=== PATIENT | male | born 1950 | race Caucasian/White ===

== ENCOUNTER 2017-04-13 05:35 | Inpatient (IN) | payer MEDICARE ==
[~2017-04-13] VITALS: Ht 182.9 cm; Wt 141.0 kg
[~2017-04-13 05:35] MED LIST: ASCO100029 PO; ASPI81TA23 PO; ATOR20TA15 PO; CARV3.12 PO; COQ-50CA2 PO; GLUC500T4 PO; LECI12002 PO; LISI-519 PO; METF500T PO; MULT1TAB64 PO; OMEG100046 PO; PIOG30TA4 PO; ROPI0.5T PO; TIZA4CAP3 PO
[2017-04-13] MEDS ORDERED: LACTATED RINGER'S 1000 ML IV PRN (06:15)
[2017-04-13] MEDS ORDERED: ACETAMINOPHEN 1000 MG/100 ML 100 ML IV SCH (06:15)
[2017-04-13] MEDS ORDERED: ONDANSETRON HCL 4 MG/2 ML VIAL IV PUSH SCH (06:15)
[2017-04-13] MEDS ORDERED: SCOPOLAMINE 1.5 MG PATCH T-DERMAL SCH (06:15)
[2017-04-13] MEDS ORDERED: POVIDONE IODINE 5% (ANTISEPSIS KIT) 4 APPLICATIONS EACH NARE PRN (06:15)
[2017-04-13] MEDS ORDERED: SODIUM CHLORID 0.9% 500 ML IV PRN (06:15)
[2017-04-13] MEDS ORDERED: ceFAZolin 2 GM PREMIX 50 ML IV SCH (06:15)
[2017-04-13] MEDS ORDERED: CHLORHEXIDINE GLUCONATE 2 % 1 PACK (2 CLOTHS) TOPICAL PRN (06:15)
[2017-04-13] MEDS ORDERED: APREPITANT 40 MG CAP PO SCH (06:15)
[2017-04-13] MEDS ORDERED: METOPROLOL TARTRATE 25 MG TAB PO PRN (06:15)
[2017-04-13] MEDS ORDERED: BUPIVACAINE/EPINEPHRINE 0.25% 50 ML VIAL ONE (07:18)
--- NOTE | 2017-04-13 07:47 | HHI.PR ---
Immediate Post Op Note Procedure Date: Apr 13, 2017 Pre Op Diagnosis: morbid obesity bmi 42, hypercholestremia, augustina, htn Post Op Diagnosis: same Surgeon: Diallo Colin MD [employer] Equipment Tender(s): see or sheet Procedure: laparoscopic sleeve gastrectomy Findings: no leak Complications: none Specimen(s) removed: none Estimated blood loss: 5cc Anesthesia: General Drains: None Patient to: PACU Patient Condition: Good Diallo Colin MD Apr 13, 2017 07:47
[2017-04-13] MEDS ORDERED: metroNIDAZOLE 500 MG INJ 100 ML IV ONE (08:12)
[2017-04-13] MEDS ORDERED: DO NOT ADM ANY ANTICOAGULANT DRUGS PRN (09:50)
[2017-04-13] MEDS ORDERED: MIDAZOLAM HCL 2 MG/2 ML VIAL ONE (09:56)
[2017-04-13] MEDS: D5-1/2 NS + KCL 20 MEQ INJ 1,000 ML IV SCH ×3 (10:12→22:47)
[2017-04-13] MEDS ORDERED: diphenhydrAMINE HCL 50 MG/ML VIAL IV PUSH PRN (10:45)
[2017-04-13] MEDS ORDERED: ACETAMINOPHEN 325MG/HYDROcodone 7.5MG/15ML UDC PO PRN (10:45)
[2017-04-13] MEDS ORDERED: diphenhydrAMINE HCL ELIXIR 12.5 MG/5 ML CUP PO PRN (10:45)
[2017-04-13] MEDS ORDERED: PANTOPRAZOLE SOD 40 MG DELAYED RELEASE TAB PO SCH (10:45)
[2017-04-13] MEDS: SODIUM CHLORIDE 0.9% FLUSH 10 ML FLUSH IV FLUSH SCH ×2 (10:45→20:23)
[2017-04-13] MEDS ORDERED: SODIUM CHLORIDE 0.9% FLUSH 10 ML FLUSH IV FLUSH PRN (10:45)
[2017-04-13] MEDS ORDERED: *morphine SULFATE 4 MG/ML PERIprocedure ONLY ONE (10:49)
[2017-04-13] MEDS ORDERED: Post-op Orders (for Pharmacy) OTHER ONE (11:00)
[2017-04-13] MEDS ORDERED: ONDANSETRON HCL 4 MG/2 ML VIAL IV PUSH PRN (11:00)
[2017-04-13] MEDS ORDERED: ENALAPRILAT 1.25 MG/ML VIAL IV PUSH PRN (11:00)
[2017-04-13] MEDS: METOCLOPRAMIDE HCL 10 MG/2 ML VIAL IV PUSH SCH ×3 (11:10→22:54)
[2017-04-13 13:10] VITALS: BP 119/61; PULSE 87; RESP 19; TEMP 95.4; O2SAT 92
[2017-04-13] MEDS: ACETAMINOPHEN 1000 MG/100 ML 100 ML IV SCH ×3 (14:23→22:48)
[2017-04-13] MEDS: ENOXAPARIN SODIUM 40 MG/0.4 ML SYRINGE SQ SCH (14:23)
[2017-04-13] MEDS: ACETAMINOPHEN 325MG/HYDROcodone 7.5MG/15ML UDC PO PRN (14:23)
[2017-04-13 16:00] VITALS: BP 101/55; PULSE 77; RESP 19; TEMP 95.9; O2SAT 90
[2017-04-13 16:20] VITALS: O2SAT 92
[2017-04-13] MEDS: metroNIDAZOLE 500 MG INJ 100 ML IV SCH (17:06)
[2017-04-13 20:00] VITALS: BP 142/79; PULSE 85; RESP 20; TEMP 96.5; O2SAT 98
[2017-04-14] VITALS: BP 118/69; PULSE 92; RESP 21; TEMP 97.8; O2SAT 94
[2017-04-14] MEDS: metroNIDAZOLE 500 MG INJ 100 ML IV SCH ×2 (00:32→08:43)
--- NOTE | 2017-04-14 04:58 | HHI.PR ---
Subjective Subjective Notes mild incisional pain, no nausea, ambulating Objective Vitals/I&O Vital Signs Date Time Temp Pulse Resp B/P (MAP) Pulse Ox O2 Delivery O2 Flow Rate FiO2 04/14/17 00:38 Nasal Cannula 2.00 04/14/17 00:00 97.8 92 21 118/69 (85) 94 Abdomen: Other (soft incisional tenderness) A/P Assessment and Plan POD 1 Lap sleeve gastrectomy PLAN Liquid diet oob dvt ppx po pain control d/c planning after lunch pending labs and intake Diallo Colin MD Apr 14, 2017 04:58
[2017-04-14 05:13] VITALS: BP 122/60; PULSE 87; RESP 20; TEMP 98.8; O2SAT 92
[2017-04-14] MEDS: ACETAMINOPHEN 1000 MG/100 ML 100 ML IV SCH (05:50)
[2017-04-14] MEDS: ACETAMINOPHEN 325MG/HYDROcodone 7.5MG/15ML UDC PO PRN (05:50)
[2017-04-14] MEDS: METOCLOPRAMIDE HCL 10 MG/2 ML VIAL IV PUSH SCH (05:52)
[2017-04-14 06:03] LABS: AUTOMATED NEUTROPHIL # 7.3 TH/MM3 (1.8-7.7); BASOPHIL % 0.3 % (0.0-2.0); EOSINOPHIL % 0.2 % (0.0-4.0); HEMATOCRIT 40.9 % (39.0-51.0); LYMPH % 13.6 % (9.0-44.0); LYMPHOCYTE # 1.3 TH/MM3 (1.0-4.8); MEAN CELL VOLUME 89.1 FL (80.0-100.0); MEAN CORPUSCULAR HEMOGLOBIN 30.4 PG (27.0-34.0); MEAN CORPUSCULAR HGB CONC 34.1 % (32.0-36.0); MEAN PLATELET VOLUME 9.3 FL (7.0-11.0); MONO % 7.6 % (0.0-8.0); MONOCYTE # 0.7 TH/MM3 (0-0.9); NEUT % 78.3 % (16.0-70.0); PLATELET COUNT 94 TH/MM3 (150-450); RED BLOOD COUNT 4.59 MIL/MM3 (4.50-5.90); WHITE BLOOD COUNT 9.3 TH/MM3 (4.0-11.0)
[2017-04-14 06:27] LABS: BICARBONATE 26.6 MEQ/L (21.0-32.0); CALCIUM 8.9 MG/DL (8.5-10.1); CREATININE 0.83 MG/DL (0.60-1.30); MAGNESIUM 2.1 MG/DL (1.5-2.5)
[2017-04-14] MEDS: SODIUM CHLORIDE 0.9% FLUSH 10 ML FLUSH IV FLUSH SCH (08:43)
[2017-04-14 08:52] VITALS: BP 112/55; PULSE 91; RESP 16; TEMP 97.2; O2SAT 97
[2017-04-14] MEDS ORDERED: DEXTROSE 50% IN WATER 50 ML VIAL(D50) IV PUSH PRN (09:00)
[2017-04-14] MEDS ORDERED: GLUCAGON 1 MG/ML VIAL OTHER PRN (09:00)
[2017-04-14] MEDS ORDERED: CARVEDILOL 3.125 MG TAB PO SCH (09:00)
[2017-04-14] MEDS: D5-1/2 NS + KCL 20 MEQ INJ 1,000 ML IV SCH (10:06)
--- NOTE | 2017-04-14 10:30 | MP ---
cc: SUHA COLIN MD DATE OF SURGERY 04/13/2017 PREOPERATIVE DIAGNOSES 1. Morbid obesity, BMI of 42. 2. Hypercholesteremia. 3. Hypertension. 4. Obstructive sleep apnea POSTOPERATIVE DIAGNOSES 1. Morbid obesity, BMI of 42. 2. Hypercholesteremia. 3. Hypertension. 4. Obstructive sleep apnea PROCEDURE PERFORMED Laparoscopic sleeve gastrectomy over a 36-Arabic ViSiGi bougie. 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 IV FLUIDS See Anesthesia sheet. ESTIMATED BLOOD LOSS 10 cc DRAINS None. COMPLICATIONS None. WOUND CLASSIFICATION Clean. FINDINGS No leak with methylene blue. SPECIMENS None. INDICATION The patient is a 67-year-old male who presents with multiple attempts at weight loss. He had a BMI of 42, multiple comorbidities of hypercholesteremia, hypertension and obstructive sleep apnea. Decision was made for operative intervention including laparoscopic sleeve gastrectomy. DETAILS OF PROCEDURE The patient was taken to the operating suite and placed in supine position. He was prepped and draped in the usual sterile fashion after induction of general endotracheal anesthesia. A brief time-out was done stating the correct patient, procedure, surgical site and we were all in agreement with this. Attention was first directed 15 cm distal to the xyphoid, local anesthetic injected. A stab-beverley incision was with a 15 blade. The 5-mm scope was introduced and pneumoperitoneum obtained with 15 mm pneumoperitoneum. On cursory inspection no evidence of injury. The patient was placed in reverse Trendelenburg position and airplaned to the right. The right upper quadrant liver port retractor was placed to retract the left lobe of the liver. This was done after placing a 5-mm port. Next a 15-mm port was placed in the right lower quadrant followed by 5-mm left lower quadrant port x2 and a left lateral port. Omental attachments were taken down to the greater curvature of the stomach using harmonic scalpel, all the way up to 5 cm distal to the pylorus and carried down the angle of His. The posterior ligamentous attachments were taken down and dissected. There were very minimal posterior attachments. Following this a 36-Arabic ViSiGi bougie was advanced down the pylorus and division of the stomach was created. The sleeve gastrectomy was done 5 cm from the pylorus all the way up to the angle of His, approximately 1 cm from the GE junction. Endo-SOLE stapler was used, initially black load, followed by gold and green loads with reinforcing SeamGuard. Methylene blue was instilled through ViSiGi without evidence of extravasation. Three syringe-fulls were done. The sleeve was noted to be adequately distended without evidence of leak. The SeamGuard was sutured to the gastrocolic ligament with a #2-0 running V-Loc suture. Evicel was then placed to control all bleeding points and to reinforce the staple line. The stomach was removed through the 15-mm port site. A 0 Vicryl was used to approximate the 15-mm port site fascia. Pneumoperitoneum was removed. All ports were removed. 4-0 Monocryl was used to close with subcuticular sutures. Sterile dressings placed including Mastisol and Steri-Strips. The patient tolerated procedure well. There was no intraoperative complication. All lap and instrument counts were correct during the procedure. The patient was extubated and taken to the PACU. MD SELVIN Nicole/DESMOND /8:11 PM /9:43 AM
[2017-04-14] MEDS ORDERED: METOCLOPRAMIDE HCL 10 MG/2 ML VIAL IV PUSH PRN (11:00)
[2017-04-14 12:47] VITALS: BP 125/63; PULSE 73; RESP 18; TEMP 96.7; O2SAT 94
[2017-04-14] MEDS: ENOXAPARIN SODIUM 40 MG/0.4 ML SYRINGE SQ SCH (13:28)
[2017-04-14] MEDS ORDERED: LISINOPRIL 5 MG TAB PO SCH (21:00)
== END 2017-04-14 14:46 | disposition home or self-care (01) | DRG 621 ==
LOC: HSDI 05:35 → N07B 13:14
PROVIDERS: ADMIT Surgery; ATTEND Surgery
PROC: 0DB64Z3 Excision of Stomach, Percutaneous Endoscopic Approach, Vertical (ICD-10-PCS; principal; 2017-04-13 07:37)
DX: E66.01 Morbid (severe) obesity due to excess calories (principal); D69.6 Thrombocytopenia, unspecified; I50.9 Heart failure, unspecified; Z68.41 Body mass index [BMI] 40.0-44.9, adult; E78.00 Pure hypercholesterolemia, unspecified; G47.33 Obstructive sleep apnea (adult) (pediatric); E11.9 Type 2 diabetes mellitus without complications; Z79.84 Long term (current) use of oral hypoglycemic drugs; I10 Essential (primary) hypertension
CPT/HCPCS: 80048; 82947; 83735; 85025; 86850; 86900; 86901; 94150; J0131; J0690; J1650; J2250; J2270; J2405; J2765; J3010; J3480; J7120; J8501